=== PATIENT | male | born 1960 | race African-American/Black ===

== ENCOUNTER 2018-06-04 22:28 | Emergency (ER) | payer OTHER ==
[~2018-06-04] VITALS: Ht 188 cm; Wt 100.0 kg
[~2018-06-04 22:28] MED LIST: ASPI-1159 PO; ATOR40TA70 PO; CARV6.2548 PO; CLOP75TA15 PO; CLOP75TA33 PO; ENOX100D3 SUBCUT; FURO-151 PO; ISOS30TA6 PO; LISI-186 PO
[2018-06-04] MEDS ORDERED: ASPIRIN 81MG TABLET PO ONE (22:45)
[2018-06-04] MEDS ORDERED: FUROSEMIDE 40MG/4ML VIAL IV ONE (22:45)
[2018-06-04] MEDS ORDERED: NITROGLYCERIN OINT 1GM/INCH UDPKT TD ONE (22:45)
[2018-06-04 22:57] LABS: BASOPHILS % 1.3 % (0.0-2.0); EOSINOPHILS % 3.1 % (0.0-5.0); HEMATOCRIT. 41.3 % (42.0-52.0); HEMOGLOBIN. 14.2 g/dL (14.0-18.0); LYMPHOCYTES % 52.5 % (20.0-50.0); MEAN CORPUSCULAR HEMOGLOBIN 33.7 pg (28.0-32.0); MEAN CORPUSCULAR VOLUME 97.6 fL (80.0-94.0); MEAN PLATELET VOLUME 8.6 fl (7.4-10.4); MONOCYTES % 5.6 % (2.0-8.0); NEUTROPHILS % 37.5 % (40.0-76.0); PLATELET 170 x1000/uL (130-400); RED BLOOD CELL COUNT 4.23 mill/uL (4.7-6.1); RED CELL DISTRIBUTION WIDTH 14.7 % (11.6-14.6)
[2018-06-04 23:04] LABS: CHLORIDE 112 mEq/L (98-107)
[2018-06-04 23:07] LABS: INR 1.1; PARTIAL THROMBOPLASTIN TIME 29.3 sec (23.4-31.0); PROTHROMBIN TIME 11.8 sec (9.6-11.0)
[2018-06-04 23:23] LABS: BG BASE EXCESS -3.1 mmol/L (-2.0-2.0); BG BILEVEL POS AIRWAY PRESSURE 15/5; BG CARBOXYHEMOGLOBIN 1.6 % (0.5-1.5); BG DEOXYHEMOGLOBIN 0.7 % (0.0-5.0); BG FRACTION INSPIRED OXYGEN 70; BG HCO3 ACT 22.6 mmol/L (22.0-26.0); BG METHEMOGLOBIN 0.4 % (0.0-1.5); BG OXYGEN SATURATION 99.3 % (92.0-98.5); BG OXYHEMOGLOBIN 97.3 % (94.0-97.0); BG PH 7.339 (7.350-7.450); BG PO2 249.9 mmHg (75.0-100.0); BG SAMPLE SITE RIGHT RADIAL; BG TOTAL HEMOGLOBIN 14.5 g/dL (12.0-18.0); BG VENT MODE MASK - BIPAP
[2018-06-05 02:15] VITALS: BP 105/65
== END 2018-06-05 02:16 | disposition short-term general hospital (02) ==
LOC: ER 22:28 → CANBEDREQ 06-05 06:14
DX: I11.0 Hypertensive heart disease with heart failure (principal); I50.9 Heart failure, unspecified; I25.10 Atherosclerotic heart disease of native coronary artery without angina pectoris; Z86.73 Personal history of transient ischemic attack (TIA), and cerebral infarction without residual deficits; F17.200 Nicotine dependence, unspecified, uncomplicated; Z79.899 Other long term (current) drug therapy
CPT/HCPCS: 36415; 36600; 71045; 80053; 82375; 82805; 83880; 84484; 85025; 85610; 85730; 93005; 96374; 99291; J1940

== ENCOUNTER 2022-01-24 17:01 | Inpatient (IN) | payer MEDICARE, OTHER, MEDICAID ==
[~2022-01-24] VITALS: Ht 180.3 cm; Wt 90.7 kg
[~2022-01-24 17:01] MED LIST changes: -ASPI-1159 PO; +ASPI-1497 PO; -ISOS30TA6 PO; +ISOS30TA91 PO
[2022-01-24] MEDS ORDERED: NICARDIPINE 50 MG in SODIUM CHLORIDE 0.9% 230 ML IV STA (17:41)
[2022-01-24] MEDS ORDERED: LEVETIRACETAM 500MG PREMIX 100 ML IV ONE (17:45)
[2022-01-24] MEDS ORDERED: NICARDIPINE 40MG/200ML PREMIX 200 ML IV NR (17:55)
[2022-01-24] MEDS ORDERED: NICARDIPINE 100 MG in SODIUM CHLORIDE 0.9% 60 ML IV PRN (18:15)
[2022-01-24] MEDS ORDERED: DEXT 5%/LACTATED RINGERS 1,000 ML IV SCH (18:15)
[2022-01-24 19:45] LABS: BASOPHILS % 0.8 % (0.0-2.0); EOSINOPHILS % 1.2 % (0.0-5.0); HEMATOCRIT. 44.2 % (42.0-52.0); HEMOGLOBIN. 15.2 g/dL (14.0-18.0); LYMPHOCYTES % 51.9 % (20.0-50.0); MEAN CORPUSCULAR HEMOGLOBIN 34.6 pg (28.0-32.0); MEAN CORPUSCULAR VOLUME 100.6 fL (80.0-94.0); MEAN PLATELET VOLUME 8.8 fl (7.4-10.4); MONOCYTES % 7.4 % (2.0-8.0); NEUTROPHILS % 38.7 % (40.0-76.0); PLATELET 163 x1000/uL (130-400); RED BLOOD CELL COUNT 4.39 mill/uL (4.7-6.1); RED CELL DISTRIBUTION WIDTH 13.5 % (11.6-14.6)
[2022-01-24 19:48] LABS: CHLORIDE 102 mEq/L (98-107)
[2022-01-24 19:52] LABS: INR 1.1; PARTIAL THROMBOPLASTIN TIME 28.5 sec (23.4-31.0); PROTHROMBIN TIME 11.4 sec (9.6-11.0)
[2022-01-24 19:57] LABS: ETHANOL BLOOD 159 mg/dL
[2022-01-24] MEDS: DEXAMETHASONE 4MG/ML 1ML VIAL IV SCH (20:00)
[2022-01-24] MEDS ORDERED: LEVETIRACETAM 500MG PREMIX 100 ML IV SCH (21:00)
[2022-01-24] MEDS ORDERED: IOHEXOL-350 100 ML BOTTLE ONE (23:02)
[2022-01-25] VITALS (30 sets, daily range): BP systolic 113–151; BP diastolic 66–97
[2022-01-25] MEDS: DEXAMETHASONE 4MG/ML 1ML VIAL IV SCH ×4 (01:41→17:59)
[2022-01-25] MEDS: LEVETIRACETAM 500MG PREMIX 100 ML IV SCH ×2 (09:07→21:00)
[2022-01-25] MEDS ORDERED: DEXTROSE 50% WATER 50ML SYRINGE IV PRN (18:15)
[2022-01-25] MEDS ORDERED: CLONIDINE 0.1MG TABLET PO PRN (18:15)
[2022-01-25] MEDS: INSULIN LISPRO 100 UNITS/ML SUBCUT SCH (20:07)
[2022-01-25] MEDS: AMLODIPINE 5MG TABLET PO SCH (21:00)
[2022-01-25] MEDS: BLOOD SUGAR DIAGNOSTIC STRIP TEST SCH (21:09)
[2022-01-25] MEDS ORDERED: INSULIN GLARGINE 100 UNITS/ML SUBCUT SCH (22:00)
[2022-01-26 02:00] VITALS: BP 122/85
[2022-01-26 04:00] VITALS: BP 122/85
[2022-01-26] MEDS: BLOOD SUGAR DIAGNOSTIC STRIP TEST SCH (06:12)
[2022-01-26] MEDS: INSULIN LISPRO 100 UNITS/ML SUBCUT SCH ×2 (07:30→09:24)
[2022-01-26] MEDS: AMLODIPINE 5MG TABLET PO SCH (08:27)
[2022-01-26 08:42] VITALS: BP 146/84
== END 2022-01-26 09:39 | disposition short-term general hospital (02) | DRG 87 ==
LOC: ER 17:01 → MICUNO 18:11 → CANRESERV 20:57 → ENRESERV 20:57 → 6EST 01-25 16:19
PROVIDERS: ADMIT Internal Medicine; ATTEND Internal Medicine
DX: S06.360A Traumatic hemorrhage of cerebrum, unspecified, without loss of consciousness, initial encounter (principal); I11.0 Hypertensive heart disease with heart failure; I25.10 Atherosclerotic heart disease of native coronary artery without angina pectoris; I50.9 Heart failure, unspecified; Z20.822 Contact with and (suspected) exposure to COVID-19; F10.90 Alcohol use, unspecified, uncomplicated; Z72.0 Tobacco use; Z86.73 Personal history of transient ischemic attack (TIA), and cerebral infarction without residual deficits; Z95.0 Presence of cardiac pacemaker; Y90.6 Blood alcohol level of 120-199 mg/100 ml; Z79.899 Other long term (current) drug therapy; W18.30XA Fall on same level, unspecified, initial encounter; Y93.89 Activity, other specified; Y92.89 Other specified places as the place of occurrence of the external cause; Y99.8 Other external cause status; R29.704 NIHSS score 4; R40.2412 Glasgow coma scale score 13-15, at arrival to emergency department; R29.702 NIHSS score 2
CPT/HCPCS: 36415; 70496; 70498; 71045; 80053; 80320; 82962; 83036; 84484; 85025; 86850; 86900; 87426; 93005; 99291; J1100; J1815; J1953; J3490; J7050; Q9967; G0480